=== PATIENT | female | born 1990 | race Caucasian/White ===

== ENCOUNTER 2020-05-26 13:51 | Emergency (ER) | payer OTHER ==
--- OUTSIDE RECORDS SUMMARY | 2020-05-26 13:53 | XMS REPORT | Continuity of Care Document ---
:1990 Author Organization [facility] t Address [address] [place] [address] Care Team Providers Name Role Phone 2, [facility] Attending Clinician Unavailable Bossman Banerjee MD Attending Clinician Monica PFEIFFER Attending Clinician Problems This patient has no known problems. Allergies, Adverse Reactions, Alerts This patient has no known allergies or adverse reactions. Medications This patient has no known medications. Procedures This patient has no known procedures. Encounters Start End Encounter Admission Attending Care Care Encounter Source Date/Time Date/Time Type Type Clinicians Facility Department ID 2020-02-01 2020-02-01 Trouble Tracer 2, [facility] [id number] 08:45:20 09:00:20 Visit Brandon [id number] [place] [id number] [place] [id number] [address] 2020-01-31 2020-01-31 Telephone Lauren Banerjee [facility] [id number] 00:00:00 00:00:00 Bossman Taylor [id number] [place] [id number] Griffin [phone] [facility] [address] [facility] 2020-01-30 2020-01-30 Office Monica RILATISHA [id number] 15:52:03 17:03:15 Visit Gissell Taylor [id number] [place] [id number] [facility] Edessio [phone] [facility] 134 Building Results This patient has no known results.
--- NOTE | 2020-05-26 14:53 | RAD REPORT ---
EXAM DESCRIPTION: CT - CTHCSPWOC - 05/26/2020 2:21 pm CLINICAL HISTORY: PAIN, facial trauma, head and neck injury COMPARISON: <Comparisons> TECHNIQUE: Axial 5 mm thick images of the head were obtained. Axial 2 mm thick images of the cervic al spine were obtained with sagittal and coronal reconstruction images generated and reviewed. All CT scans are performed using dose optimization technique as appropriate and may include automated exposure control or mA/KV adjustment according to patient size. FINDINGS: No intracranial hemorrhage, mass, edema or acute intracranial finding. No suspicion for ac flako infarction. No extra-axial fluid collections. Mastoid air cells are clear. No globe or orbit abno rmality seen. Orbits, sinuses and facial bones are separately detailed. Cervical body height and alignment are normal. No disk space narrowing. No fracture or acute bony abn ormality. Central canal detail is inherently limited. No paraspinal mass or hematoma. IMPRESSION: No intracranial abnormality present. Orbits, facial bones and sinuses are separately det chio. Negative CT cervical spine examination for acute or significant finding.
--- NOTE | 2020-05-26 15:01 | RAD REPORT ---
EXAM DESCRIPTION: CT - Facial Bones W/ Mpr - 05/26/2020 2:22 pm CLINICAL HISTORY: Pain, facial trauma COMPARISON: None. TECHNIQUE: Axial 2 millimeter thick images of the facial bones were obtained with sagittal and coron al reconstruction imaging. All CT scans are performed using dose optimization technique as appropriate and may include automated exposure control or mA/KV adjustment according to patient size. FINDINGS: No mandible fracture. Condyles are normally positioned. Mastoid air cells are clear with n o skullbase fracture present. Sphenoid, ethmoid and left frontal sinuses are clear. Right frontal sin uses are not pneumatized. Bilateral maxillary sinus mucosal thickening present. Air-fluid level in th e left maxillary sinus. Right periorbital contusion and edema changes are present. No injury to the globe identified. No post septal orbital abnormality seen. No foreign body in the soft tissues. Nondisplaced nasal bone fracture is present. No nasal septum deviation seen. Zygomatic arches are int act. Nondisplaced fracture line is seen in the lateral superior left orbit. Lucent lines along the inferol ateral aspect of each maxillary sinus present. These are very symmetric can therefore probably vascul ar defects. Nondisplaced fracture is possible. No other evidence for possible sinus wall fracture. Pt erygoid bones are intact. IMPRESSION: Nondisplaced nasal bone fracture is present with nasal passage hemorrhage or edema hyatt es. Nondisplaced fracture in the superolateral left orbit. There are symmetric nondisplaced fractures ellis lorne vascular grooves along each inferior maxillary sinus. An air-fluid level is present in the left m axillary sinus. Significant right periorbital contusion and edema change without orbit fracture identified. No globe or post septal orbital injury seen.
--- NOTE | 2020-05-26 15:54 | EDPHYS ---
Physician Documentation [facility] Name: Omayra Wylie Age: 29 yrs Sex: Female : 1990 Arrival Date: 05/26/2020 Time: 13:56 Bed 18 Private MD: ED Physician Alexx Aguilar HPI: 05/26 15:38 This 29 yrs old Female presents to ER via Ambulatory with complaints of Fall pm1 Injury. 15:38 Details of fall: The patient fell from a height, on her boyfriend's shoulder. Onset: pm1 The symptoms/episode began/occurred yesterday. Associated injuries: The patient sustained injury to the head, pain, swelling. Severity of symptoms: in the emergency department the symptoms are unchanged. The patient has not experienced similar symptoms in the past. The patient has not recently seen a physician. Patient was apparently dirty dancing with her boyfriend. Was picked up onto her boyfriend's shoulder and he slipped on a sock and fell backwards. She hit the right side of her face on the floor. No LOC. Patient presenting with right eye swelling . Historical: - Allergies: 14:15 No Known Allergies; hb - Immunization history:: Adult Immunizations up to date. - Social history:: Smoking status: Patient reports the use of cigarette tobacco products. ROS: 15:38 Constitutional: Negative for fever, chills, and weight loss, Cardiovascular: Negative pm1 for chest pain, palpitations, and edema, Respiratory: Negative for shortness of breath, cough, wheezing, and pleuritic chest pain. 15:38 Neck: Negative for injury, pain, and swelling, Abdomen/GI: Negative for abdominal pain, nausea, vomiting, diarrhea, and constipation, Back: Negative for injury and pain, MS/Extremity: Negative for injury and deformity, Skin: Negative for injury, rash, and discoloration, Neuro: Negative for headache, weakness, numbness, tingling, and seizure. 15:38 Eyes: Positive for swelling, of the right eye, Negative for blurry vision, redness, vision loss, visual disturbance. 15:38 ENT: Positive for sinus congestion, sinus pain, Negative for drainage from ear(s), ear pain. Exam: 15:38 Constitutional: This is a well developed, well nourished patient who is awake, alert, pm1 and in no acute distress. 15:38 Back: No spinal tenderness. No costovertebral tenderness. Full range of motion. 15:38 Skin: Warm, dry with normal turgor. Normal color with no rashes, no lesions, and no evidence of cellulitis. MS/ Extremity: Pulses equal, no cyanosis. Neurovascular intact. Full, normal range of motion. 15:38 Eyes: Periorbital structures: swelling, that is moderate, on the right eye, ecchymosis, on the right eye, Extraocular movements: No signs or indication of entrapment in either eye. 15:38 ENT: External ear(s): are unremarkable, Ear canal(s): are normal, TM's: are normal, Nose: Nasal septum: is midline, no septal hematoma appreciated, clotted blood, is not appreciated, Posterior pharynx: is normal, airway is patent, no erythema, no exudate, no pooling of secretions, no swelling. 15:38 Neck: Exam negative for acute changes, External neck: no acute changes, C-spine: vertebral tenderness, is not appreciated, ROM/movement: is normal. 15:38 Cardiovascular: Exam negative for acute changes, Rate: normal, Rhythm: regular, Pulses: no pulse deficits are appreciated. 15:38 Respiratory: Exam negative for acute changes, respiratory distress, shortness of breath. 15:38 Abdomen/GI: Exam negative for acute changes, Inspection: abdomen appears normal, Palpation: abdomen is soft and non-tender, in all quadrants. 15:38 Neuro: Exam negative for acute changes, Orientation: is normal, Mentation: is normal, Motor: is normal, moves all fours, Sensation: is normal, no obvious gross deficits. Vital Signs: 14:08 BP 138 / 78; Pulse 88; Resp 16; Temp 98.3; Pulse Ox 100% ; Pain 10/10; hb 16:08 BP 140 / 74; Pulse 81; Resp 18; Pulse Ox 100% on R/A; bw MDM: 15:24 Patient medically screened. pm1 15:38 Data reviewed: vital signs. Data interpreted: Pulse oximetry: on room air is 100 %. pm1 Interpretation: normal. 15:43 Counseling: I had a detailed discussion with the patient and/or guardian regarding: the pm1 historical points, exam findings, and any diagnostic results supporting the discharge/admit diagnosis, radiology results, the need for outpatient follow up, an ENT specialist, a plastic surgeon, to return to the emergency department if symptoms worsen or persist or if there are any questions or concerns that arise at home. 05/26 14:09 Order name: CT Head C Spine; Complete Time: 15:08 rn 05/26 14:09 Order name: CT Facial Bones W/O Con; Complete Time: 15:08 rn Administered Medications: 16:07 Drug: [place] (HYDROcodone-acetaminophen) 5 mg-325 mg 1 tabs Route: PO; bw Disposition: 16:41 Co-signature as Attending Physician, Alexx Aguilar MD. rn Disposition: 05/26/20 15:54 Discharged to Home. Impression: Fracture of nasal bones, Nondisplaced superolateral left orbit fracture. - Condition is Stable. - Discharge Instructions: Nasal Fracture. - Prescriptions for Augmentin 875- 125 mg Oral Tablet - take 1 tablet by ORAL route every 12 hours for 10 days; 20 tablet. Tramadol 50 mg Oral Tablet - take 1 tablet by ORAL route every 8 hours as needed; 12 tablet. - Medication Reconciliation Form, Thank You Letter, Antibiotic Education, Prescription Opioid Use form. - Follow up: Emergency Department; When: As needed; Reason: Worsening of condition. Follow up: Private Physician; When: 2 - 3 days; Reason: Recheck today's complaints, Continuance of care, Re-evaluation by your physician. - Problem is new. - Symptoms have improved. Signatures: Dispatcher [employer] EDMS Alexx Aguilar MD MD rn Marinas, Patrick, JACQUELINE ACCOUNT ADJUSTER pm1 Nallely Dejesus RN RN Kandace Hinojosa RN RN Corrections: (The following items were deleted from the chart) 16:38 15:54 05/26/2020 15:54 Discharged to Home. Impression: Fracture of nasal bones; bw Nondisplaced superolateral left orbit fracture. Condition is Stable. Forms are Medication Reconciliation Form, Thank You Letter, Antibiotic Education, Prescription Opioid Use. Follow up: Emergency Department; When: As needed; Reason: Worsening of condition. Follow up: Private Physician; When: 2 - 3 days; Reason: Recheck today's complaints, Continuance of care, Re-evaluation by your physician. Problem is new. Symptoms have improved. pm1
--- NOTE | 2020-05-26 15:54 | ER ---
Nurse's Notes [facility] Name: Omayra Wylie Age: 29 yrs Sex: Female : 1990 Arrival Date: 05/26/2020 Time: 13:56 Bed 18 Private MD: Diagnosis: Fracture of nasal bones;Nondisplaced superolateral left orbit fracture Presentation: 05/26 14:08 Chief complaint: picked her up while dancing in the kitchen, slipped and she hb landed on her face. Right periorbital bruising and swelling that extend to right side of face noted. Pt c/o face and neck pain, right upper teeth loose, clear yellowish fluid leaking from nostrils. 14:08 Method Of Arrival: Ambulatory hb 14:08 Coronavirus screen: At this time, the client does not indicate any symptoms associated hb with coronavirus-19. Coronavirus screen: At this time, the client does not indicate any symptoms associated with coronavirus-19. Ebola Screen: No symptoms or risks identified at this time. Risk Assessment: Do you want to hurt yourself or someone else? Patient reports no desire to harm self or others. Onset of symptoms was May 25, 2020. 14:08 Acuity: PRETTY 3 hb Historical: - Allergies: 14:15 No Known Allergies; hb - Immunization history:: Adult Immunizations up to date. - Social history:: Smoking status: Patient reports the use of cigarette tobacco products. Screenin:08 Abuse screen: Denies threats or abuse. Nutritional screening: No deficits noted. bw Tuberculosis screening: No symptoms or risk factors identified. Fall Risk None identified. Assessment: 14:11 Reassessment: Dr. Aguilar notified, pt placed in waiting room, awaiting radiology at this hb time. 14:14 Reassessment: Pt to radiology via wheelchair. hb 16:08 Pain: Complains of pain in face. Neuro: No deficits noted. Cardiovascular: No deficits bw noted. Respiratory: No deficits noted. GI: No deficits noted. : No deficits noted. EENT: No deficits noted. Derm: No deficits noted. Musculoskeletal: Reports pain in right eye. Injury Description: Bruise sustained to right eye. Vital Signs: 14:08 BP 138 / 78; Pulse 88; Resp 16; Temp 98.3; Pulse Ox 100% ; Pain 10/10; hb 16:08 BP 140 / 74; Pulse 81; Resp 18; Pulse Ox 100% on R/A; bw ED Course: 13:56 Patient arrived in ED. ds1 14:14 Triage completed. hb 14:15 Arm band placed on. hb 14:21 CT Head C Spine In Process Unspecified. EDMS 14:21 CT Facial Bones W/O Con In Process Unspecified. EDMS 15:04 Kandace Hinojosa, RN is Primary Nurse. bw 15:15 Beau Lennon NP is PHCP. pm1 15:15 Alexx Aguilar MD is Attending Physician. pm1 16:08 Patient has correct armband on for positive identification. Call light in reach. Side bw rails up X 1. Pulse ox on. NIBP on. Warm blanket given. 16:08 No provider procedures requiring assistance completed. Patient did not have IV access bw during this emergency room visit. Administered Medications: 16:07 Drug: [place] (HYDROcodone-acetaminophen) 5 mg-325 mg 1 tabs Route: PO; bw Outcome: 15:54 Discharge ordered by . pm1 16:38 Patient left the ED. bw Signatures: Dispatcher [employer] EDMD Angie Boucher ds1 Beau Lennon NP ARTIFICIAL FLOWERS SUPERVISOR pm1 Nallely Dejesus RN RN Kandace Hinojosa RN RN Corrections: (The following items were deleted from the chart) 14:16 14:15 Reassessment: Dr. Aguilar notified, pt placed in waiting room, awaiting radiology hb at this time. hb
[2020-05-26] MEDS ORDERED: HYDROCODONE/APAP 5/325 MG TAB ONE (16:17)
[2020-05-26 22:19] VITALS: BP 138/78; TEMP 98.3; O2SAT 100
== END 2020-05-26 16:38 | disposition home or self-care (01) ==
LOC: ER 13:51
DX: S02.842A Fracture of lateral orbital wall, left side, initial encounter for closed fracture (principal); S02.2XXA Fracture of nasal bones, initial encounter for closed fracture; W04.XXXA Fall while being carried or supported by other persons, initial encounter; Y93.41 Activity, dancing; F17.210 Nicotine dependence, cigarettes, uncomplicated
CPT/HCPCS: 70450; 70486; 72125; 76377; 99283

== ENCOUNTER 2021-07-11 23:00 | Emergency (ER) | payer OTHER, SELFPAY ==
--- OUTSIDE RECORDS SUMMARY | 2021-07-11 23:04 | XMS REPORT | Continuity of Care Document ---
:1990 Author Organization [facility] t Address [address] [place] [address] Care Team Providers Name Role Phone PCP, PATIENT DOES NOT HAVE A Primary Care Physician Unavailwiley ANDERSON Attending Clinician Unavailable 2, Lab Attending Clinician Unavailable Abdullahi PFEIFFER Attending Clinician Bossman Banerjee MD Attending Clinician Doctor Unassigned, Name Attending Clinician Unavailable Payers Payer Name Policy Type Policy Number Effective Date Expiration Date S rehana COMMERCIAL [id number] 2019 NON-CONTRACT 00:00:00 GENERIC [employer] HMO [id number] 2017 00:00:00 Problems Condition Condition Condition Status Onset Resolution Last Treating Co mments Source Name Details Category Date Date Treatment Clinician Date Chlamydia Chlamydia Disease Active Overview: Univers trachomati trachomati 3-22 05/05/18 - ity of s s 00:00: +chlamydi [place] infection infection 00 a s/p Medi curtis of lower of lower treatment Bra [facility] genitourin genitourin [facility] Breast Breast Disease Active Univers lump on lump on 3-20 [place] 3 00 Medical o'clock o'clock Branch position position History of History of Disease Active U nivers ovarian ovarian 3-20 ity of cyst cyst 00:00: [place] 00 Medical Branch History of History of Disease Active Overview : Univers herpes herpes 3-20 Uses ity of genitalis genitalis [place] [facility] [place] Acyclovir Medical PRN. 4-5 Branch outbreaks a year. History of History of Disease Active U nivers cervical cervical 3-20 [place] [address] [place] [address] S/P tubal S/P tubal Disease Active Uni vers ligation ligation 2-03 ity of 00:00: [address] Allergies, Adverse Reactions, Alerts Allergy Allergy Status Severity Reaction(s) Onset Inactive Treating Comm ents Source Name Type Date Date Clinician NO KNOWN Drug Active Univers ALLERGIE Class ity of S [facility] Social History Social Habit Start Date Stop Date Quantity Comments Source Exposure to Not sure [facility] SARS-CoV-2 [facility] (event) [place] [facility] Tobacco use and 2020-01-30 2020-01-30 Never used Universit y of exposure 00:00:00 00:00:00 [facility] Alcohol intake 2020-01-30 2020-01-30 Current drinker Unive rsity of 00:00:00 00:00:00 of alcohol [facility] (finding) [place] Alcohol Comment 2018-05-05 2018-05-05 every other Universi ty of 00:00:00 00:00:00 weekend [facility] Smoking Status Start Date Stop Date Source Never smoker [facility] Medications Ordered Filled Start Stop Current Ordering Indication Dosage Frequency Signature Comments Components Source Medication Medication Date Date Medication? Clinician (SIG) Name Name ACYCLOVIR 2019-02 Yes Take by [facility] ers ORAL 2-15 mouth. ity of 06:27: [address] ACYCLOVIR 2019-02 Yes Take by [facility] ers ORAL 2-15 mouth. ity of 06:27: [address] ACYCLOVIR 2019-02 Yes Take by [facility] ers ORAL 2-15 mouth. ity of 06:27: [address] ACYCLOVIR 2019-02 Yes Take by [facility] ers ORAL 2-14 mouth. ity of 22:10: [address] ACYCLOVIR 2019-02 Yes Take by [facility] ers ORAL 2-14 mouth. ity of 22:10: [address] bisacodyl 2019-02 2020- No 5mg Take 5 mg Un sylvie (LAXATIVE, -14 12-14 by mouth ity of BISACODYL,) 21:54: 00:00 once daily [place] 5 mg EC 37 :00 as needed Medical tablet for Branch Constipati on. bisacodyl 2019-02 2020- No 5mg Take 5 mg Un sylvie (LAXATIVE, 2-14 12-14 by mouth ity of BISACODYL,) 21:54: 00:00 once daily [place] 5 mg EC 37 :00 as needed Medical tablet for Branch Constipati on. bisacodyl 2019-02 2020- No 5mg Take 5 mg Un sylvie (LAXATIVE, 2-14 12-14 by mouth ity of BISACODYL,) 21:54: 00:00 once daily [place] 5 mg EC 37 :00 as needed Medical tablet for Branch Constipati on. Brindall 2019-02 2020- No 1{tbl} Take 1 Univ ers Guardado-Chrom 2-14 12-14 tablet by it y of ium Iram 21:54: 00:00 mouth [place] (GARCINIA 34 :00 daily. Medical [place]) Branch 200-500 mcg-mg Tab [place] 2019-02 2020- No 1{tbl} Take 1 Univ ers Guardado-Chrom 2-14 12-14 tablet by it y of ium Iram 21:54: 00:00 mouth [place] (GARCINIA 34 :00 daily. Medical [place]) Branch 200-500 mcg-mg Tab [place] 2019-02 2020- No 1{tbl} Take 1 Univ ers Guardado-Chrom 2-14 12-14 tablet by it y of ium Iram 21:54: 00:00 mouth [place] (GARCINIA 34 :00 daily. Medical [place]) Branch 200-500 mcg-mg Tab [place] 2020-0 Yes 1{tbl} Take 1 Unive rs [place]-Chrom 1-05 tablet by ity of ium Iram 21:08: mouth [place] (GARCINIA 33 daily. Medical [place]) Branch 200-500 mcg-mg Tab bisacodyl 2020-0 Yes 5mg Take 5 mg Uni vers (LAXATIVE, 1-05 by mouth ity o f BISACODYL,) 21:08: once daily [place] 5 mg EC 33 as needed Medical tablet for Branch Constipati on. [place]ind[place] 2020-0 Yes 1{tbl} Take 1 Unive rs [place]-Chrom 1-05 tablet by ity of ium Iram 21:08: mouth [place] (GARCINIA 33 daily. Medical [facility]) Branch 200-500 mcg-mg Tab bisacodyl 2020-0 Yes 5mg Take 5 mg Uni vers (LAXATIVE, 1-05 by mouth ity o f BISACODYL,) 21:08: once daily [place] 5 mg EC 33 as needed Medical tablet for Branch Constipati on. [place] 2020-0 Yes 1{tbl} Take 1 Unive rs Guard[place]-Chrom 1-05 tablet by ity of ium Iram 21:08: mouth [place] (GARCINIA 33 daily. Medical [facility]) Branch 200-500 mcg-mg Tab bisacodyl 2020-0 Yes 5mg Take 5 mg Uni vers (LAXATIVE, 1-05 by mouth ity o f BISACODYL,) 21:08: once daily [place] 5 mg EC 33 as needed Medical tablet for Branch Constipati on. [place] 2020-0 Yes 1{tbl} Take 1 Unive rs [place]rom 1-05 tablet by ity of ium Iram 21:08: mouth [place] (GARCINIA 33 daily. Medical [facility]) Branch 200-500 mcg-mg Tab bisacodyl 2020-0 Yes 5mg Take 5 mg Uni vers (LAXATIVE, 1-05 by mouth ity o f BISACODYL,) 21:08: once daily [place] 5 mg EC 33 as needed Medical tablet for Branch Constipati on. valACYclovi 2019-0 Yes [id number] 500mg Take 1 Univers r 500 mg 3-20 tablet by ity of tablet 00:00: mouth 2 (two) Medical times Branch daily. valACYclovi 2019-0 Yes [id number] 500mg Take 1 Univers r 500 mg 3-20 tablet by ity of tablet 00:00: mouth 2 (two) Medical times Branch daily. valACYclovi 2019-0 Yes [id number] 500mg Take 1 Univers r 500 mg 3-20 tablet by ity of tablet 00:00: mouth 2 (two) Medical times Branch daily. valACYclovi 2019-0 Yes [id number] 500mg Take 1 Univers r 500 mg 3-20 tablet by ity of tablet 00:00: mouth 2 (two) Medical times Branch daily. valACYclovi 2019-0 Yes [id number] 500mg Take 1 Univers r 500 mg 3-20 tablet by ity of tablet 00:00: mouth 2 (two) Medical times Branch daily. valACYclovi 2019-0 Yes [id number] 500mg Take 1 Univers r 500 mg 3-20 tablet by ity of tablet 00:00: mouth 2 (two) Medical times Branch daily. valACYclovi 2019-0 Yes [id number] 500mg Take 1 Univers r 500 mg 3-20 tablet by ity of tablet 00:00: mouth 2 (two) Medical times Branch daily. valACYclovi 2019-0 Yes [id number] 500mg Take 1 Univers r 500 mg 3-20 tablet by ity of tablet 00:00: mouth 2 (two) Medical times Branch daily. valACYclovi 2019-0 Yes [id number] 500mg Take 1 Univers r 500 mg 3-20 tablet by ity of tablet 00:00: mouth 2 (two) Medical times Branch daily. HYDROcodone 2017-0 Yes 1{tbl} Take 1 Un sylvie -acetaminop 2-03 tablet by ity of hen (NORCO) 00:00: mouth [place] 10-325 mg 00 every 6 Medical tablet (six) Branch hours as needed for Pain (scale 1-3), Pain (scale 4-6) or Pain (scale 7-10). metoclopram 2017-0 Yes 10mg Take 1 Univ ers andrzej HCl 10 2-03 tablet by ity of mg tablet 00:00: mouth [place] 00 every 6 Medical (six) Branch hours as needed for Nausea and Vomiting (N/V). HYDROcodone 2017-0 Yes 1{tbl} Take 1 Un sylvie -acetaminop 2-03 tablet by ity of hen (NORCO) 00:00: mouth [place] 10-325 mg 00 every 6 Medical tablet (six) Branch hours as needed for Pain (scale 1-3), Pain (scale 4-6) or Pain (scale 7-10). metoclopram 2017-0 Yes 10mg Take 1 Univ ers andrzej HCl 10 2-03 tablet by ity of mg tablet 00:00: mouth [place] 00 every 6 Medical (six) Branch hours as needed for Nausea and Vomiting (N/V). HYDROcodone 2017-0 Yes 1{tbl} Take 1 Un sylvie -acetaminop 2-03 tablet by ity of hen (NORCO) 00:00: mouth [place] 10-325 mg 00 every 6 Medical tablet (six) Branch hours as needed for Pain (scale 1-3), Pain (scale 4-6) or Pain (scale 7-10). metoclopram 2017-0 Yes 10mg Take 1 Univ ers andrzej HCl 10 2-03 tablet by ity of mg tablet 00:00: mouth [place] 00 every 6 Medical (six) Branch hours as needed for Nausea and Vomiting (N/V). HYDROcodone 2017-0 Yes 1{tbl} Take 1 Un sylvie -acetaminop 2-03 tablet by ity of hen (NORCO) 00:00: mouth [place] 10-325 mg 00 every 6 Medical tablet (six) Branch hours as needed for Pain (scale 1-3), Pain (scale 4-6) or Pain (scale 7-10). metoclopram 2017-0 Yes 10mg Take 1 Univ ers andrzej HCl 10 2-03 tablet by ity of mg tablet 00:00: mouth [place] 00 every 6 Medical (six) Branch hours as needed for Nausea and Vomiting (N/V). HYDROcodone 2017-0 Yes 1{tbl} Take 1 Un sylvie -acetaminop 2-03 tablet by ity of hen (NORCO) 00:00: mouth [place] 10-325 mg 00 every 6 Medical tablet (six) Branch hours as needed for Pain (scale 1-3), Pain (scale 4-6) or Pain (scale 7-10). metoclopram 2017-0 Yes 10mg Take 1 Univ ers andrzej HCl 10 2-03 tablet by ity of mg tablet 00:00: mouth [place] 00 every 6 Medical (six) Branch hours as needed for Nausea and Vomiting (N/V). HYDROcodone 2017-0 Yes 1{tbl} Take 1 Un sylvie -acetaminop 2-03 tablet by ity of hen (NORCO) 00:00: mouth [place] 10-325 mg 00 every 6 Medical tablet (six) Branch hours as needed for Pain (scale 1-3), Pain (scale 4-6) or Pain (scale 7-10). metoclopram 2017-0 Yes 10mg Take 1 Univ ers andrzej HCl 10 2-03 tablet by ity of mg tablet 00:00: mouth [place] 00 every 6 Medical (six) Branch hours as needed for Nausea and Vomiting (N/V). HYDROcodone 2017-0 Yes 1{tbl} Take 1 Un sylvie -acetaminop 2-03 tablet by ity of hen (NORCO) 00:00: mouth [place] 10-325 mg 00 every 6 Medical tablet (six) Branch hours as needed for Pain (scale 1-3), Pain (scale 4-6) or Pain (scale 7-10). metoclopram 2017-0 Yes 10mg Take 1 Univ ers andrzej HCl 10 2-03 tablet by ity of mg tablet 00:00: mouth [place] 00 every 6 Medical (six) Branch hours as needed for Nausea and Vomiting (N/V). HYDROcodone 2017-0 Yes 1{tbl} Take 1 Un sylvie -acetaminop 2-03 tablet by ity of hen (NORCO) 00:00: mouth [place] 10-325 mg 00 every 6 Medical tablet (six) Branch hours as needed for Pain (scale 1-3), Pain (scale 4-6) or Pain (scale 7-10). metoclopram 2017-0 Yes 10mg Take 1 Univ ers andrzej HCl 10 2-03 tablet by ity of mg tablet 00:00: mouth [place] 00 every 6 Medical (six) Branch hours as needed for Nausea and Vomiting (N/V). HYDROcodone 2017-0 Yes 1{tbl} Take 1 Un sylvie -acetaminop 2-03 tablet by ity of hen (NORCO) 00:00: mouth [place] 10-325 mg 00 every 6 Medical tablet (six) Branch hours as needed for Pain (scale 1-3), Pain (scale 4-6) or Pain (scale 7-10). metoclopram 2017-0 Yes 10mg Take 1 Univ ers andrzej HCl 10 2-03 tablet by ity of mg tablet 00:00: mouth [place] 00 every 6 Medical (six) Branch hours as needed for Nausea and Vomiting (N/V). Immunizations Ordered Filled Immunization Date Status Comments [facility] e Immunization Name Name Influenza Virus 2020-01-30 Completed Universit y of Vaccine [place] .5 mL 00:00:00 [place] [facility] IM 6+ MO Branch Influenza Virus 2020-01-30 Completed Universit y of Vaccine [place] .5 mL 00:00:00 [place] Medical IM 6+ MO Branch Influenza Virus 2020-01-30 Completed Universit y of Vaccine [place] .5 mL 00:00:00 [place] Medical IM 6+ MO Branch Influenza Virus 2020-01-30 Completed Universit y of Vaccine [place] .5 mL 00:00:00 [place] Medical IM 6+ MO Branch Influenza Virus 2020-01-30 Completed Universit y of Vaccine [place] .5 mL 00:00:00 [place] Medical IM 6+ MO Branch Vital Signs Vital Name Observation Time Observation Value Comments Source Systolic blood 2020-01-30 22:06:00 129 mm[Hg] Univer sity of pressure [facility] Branch Diastolic blood 2020-01-30 22:06:00 86 mm[Hg] Unive rsity of pressure [facility] Branch Heart rate 2020-01-30 22:06:00 116 /min Universi ty of [facility] Branch Body temperature 2020-01-30 22:06:00 36.89 Elayne Univ ersity of [facility] Branch Respiratory rate 2020-01-30 22:06:00 16 /min Univ ersity of [facility] Branch Body height 2020-01-30 22:06:00 154.9 cm Universi ty of [facility] Body weight 2020-01-30 22:06:00 68.312 kg Universi ty of [place] [facility] BMI 2020-01-30 22:06:00 28.46 kg/m2 Universi ty of [facility] Branch Systolic blood 2020-01-30 22:06:00 129 mm[Hg] Univer sity of pressure [facility] Branch Diastolic blood 2020-01-30 22:06:00 86 mm[Hg] Unive rsity of pressure [facility] Branch Heart rate 2020-01-30 22:06:00 116 /min Universi ty of [place] [facility] Body temperature 2020-01-30 22:06:00 36.89 Elayne Univ ersity of [facility] Branch Respiratory rate 2020-01-30 22:06:00 16 /min Univ ersity of [facility] Branch Body height 2020-01-30 22:06:00 154.9 cm Universi ty of [place] [facility] Body weight 2020-01-30 22:06:00 68.312 kg Universi ty of [place] [facility] BMI 2020-01-30 22:06:00 28.46 kg/m2 Universi ty of [facility] Branch Procedures Procedure Date / Time Performing Clinician Source Performed GC & CHLAMYDIA AMPLIFIED 2020-01-30 22:21:00 Gissell Anderson Uni versity of [facility] TRICHOMONAS AMPLIFIED 2020-01-30 22:21:00 Gissell Anderson Univer sity [facility] [place] FLU VACC ([id number]), 6+ 2020-01-30 22:20:16 Gissell Anderson Uni versity of [place] MONTHS, IM, QUAD Medical Branch ASSIGNMENT OF BENEFITS 2020-01-30 21:48:14 [facility] [place] [facility] MEDICATION CORRESPONDENCE 2019-03-02 06:01:00 Doctor Unassigned, [facility] [place] [facility] Encounters Start End Encounter Admission Attending Care Care Encounter Source Date/Time Date/Time Type Type Clinicians Facility Department ID 2021-01-29 2021-01-29 Outpatient R ABDULLAHI [facility] [id number] Univers 13:30:00 13:30:00 GISSELL [id number] ity [facility] 2021-01-29 2021-01-29 Outpatient R ABDULLAHI [facility] [id number] Univers 13:30:00 13:30:[facility] 2020-02[facility]14 [facility] [id number] Univers 16:30:00 16:30:00 [facility] [id number] [facility] 2020-02-01 2020-02-01 [facility] [id number] 08:45:20 09:00:20 Visit [place] [id number] [place] [id number] Professio [phone] [address] 2020-02-01 2020-02-01 [facility] [id number] Univers 08:45:20 09:00:20 [id number] [id number] [phone] Mi dical [address] 2020-02-01 2020-02-01 Outpatient R [facility] [id number] Univers 08:45:00 08:45:00 [id number] ity [facility] 2020-02-01 2020-02-01 Outpatient R [facility] [id number] Univers 08:45:00 08:45:00 ity [facility] 2020-01-31 2020-01-31 Telephone Lauren Banerjee [facility] [id number] 00:00:00 00:00:00 Cam [place] [id number] [place] [id number] Professio [phone] [address] 2020-01-31 2020-01-31 Telephone Lauren Banerjee [facility] [id number] Univers 00:00:00 00:00:00 Cam [place] [id number] i ty of [place] [id number] Profess[place] [phone] [address] 2020-01-30 2020-01-30 [facility] [id number] 15:52:03 17:03:15 Visit Gissell [place] [id number] [place] [id number] Professio [phone] [address] 2020-01-30 2020-01-30 [facility] [id number] Univers 15:52:03 17:03:15 Visit Gissell [place] [id number] i ty of [place] [id number] [place] Profess[place] [phone] [address] 2020-01-30 2020-01-30 Outpatient R ABDULLAHI [facility] [id number] Univers 16:15:00 16:15:00 GISSELL [id number] [facility] 2020-01-30 2020-01-30 Outpatient R ABDULLAHI [facility] [id number] Univers 16:15:00 16:15:00 GISSELL [facility] 2020-01-30 2020-01-30 Outpatient R ABDULLAHI [facility] [id number] Univers 16:15:00 16:15:00 GISSELL [facility] 2020-01-30 2020-01-30 Orders Doctor MALONE [id number] Univers 00:00:00 00:00:00 Only Unassigned, RAJANI [id number] ity of [place] [facility] [id number] Marek as [phone] [address] 2019-05-06 2019-05-06 Outpatient R ABDULLAHI [facility] [id number] Univers 08:00:00 08:00:00 GISSELL ity of [facility] 2019-03-03 2019-03-03 Telephone Abdullahi [facility] [id number] Univers 00:00:00 00:00:00 Gissell [place] [id number] i ty of [place] [id number] [phone] Mi dical nal [address] [place] [address] 2019-03-02 2019-03-02 Orders Doctor KIRA [id number] Univers 00:00:00 00:00:00 Only Unassigned, RAJANI [id number] ity of [place] [facility] [id number] Marek as [phone] [address] 2019-03-02 2019-03-02 Patient Doctor [facility] [id number] Univers 00:00:00 00:00:00 Secure Msg Unassigned, [place] [id number] [place]y of [place] [id number] Profess[place] [phone] [address] Results Test Description Test Time Test Comments Results Result Comments Source TRICHOMONAS AMPLIFIED ASSAY 2020-01-31 18:39:00 Test Item Value Reference Range Interpretation Comme nts Trichomonas Nucleic Acid (test code = Negative Negative 00481-8) LIEN (test code = LIEN) Reliable results are dependent on adequate specimen collection. ? A positive result obtained from a patient after therapeutic treatment cannot be interpreted as indicating the presence of viable organisms. ?For patients on whom a false positive result may have adverse psychosocial impact, retesting is advised. Indeterminate: Unable to generate a valid test result on this specimen. ?Please submit a new specimen for repeat testing if clinically indicated. Trichomonas nucleic acid amplification testing (NAAT) has not been validated for medico-legal specimens (sexual abuse in johnny-pubertal and pre-pubertal children, sexual assault, and legal cases). ?Wet mount with microscopic observation and culture for Trichomonas vaginalis from clinically appropriate sites are the methods of choice in these cases. Results from this testing should be interpreted in conjunction with other laboratory and clinical data available to the clinician. Lab Interpretation (test code = Normal 36261-9) [facility] & CHLAMYDIA AMPLIFIED [id number] 18:29:00 Test Item Value Reference Range Interpretation Comments C. trachomatis Nucleic Negative Negative Acid (test code = 92383-0) N. gonorrhoeae Nucleic Negative Negative Acid (test code = 07357-8) LIEN (test code = LIEN) Reliable results are dependent on adequate specimen collection. ? A positive result obtained from a patient after therapeutic treatment cannot be interpreted as indicating the presence of viable organisms. ?For patients on whom a false positive result may have adverse psychosocial impact, retesting is advised. Indeterminate: Unable to generate a valid test result on this specimen. ?Please submit a new specimen for repeat testing if clinically indicated. Chlamydia trachomatis/Neisseria gonorrhoeae nucleic acid amplification testing (NAAT) has not been validated for medico-legal specimens (sexual abuse in johnny-pubertal and pre-pubertal children, sexual assault, and legal cases). ?Culture for Chlamydia trachomatis and/or Neisseria gonorrhoeae from clinically appropriate sites is the method of choice in these cases. ? Results from this testing should be interpreted in conjunction with other laboratory and clinical data available to the clinician.For females in general, a urine specimen is a second-line option because it is considered less sensitive than a cervical swab for Chlamydia trachomatis and/or Neisseria gonorrhoeae NAAT. Lab Interpretation Normal (test code = 10613-6) [facility]
[2021-07-12] MEDS ORDERED: HYDROCODONE/APAP 5/325 MG TAB ONE (00:56)
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
--- NOTE | 2021-07-12 02:36 | EDPHYS ---
Physician Documentation [facility] Name: Omayra Wylie Age: 30 yrs Sex: Female : 1990 Arrival Date: 07/11/2021 Time: 23:03 Bed 4 Private MD: ED Physician Trip Pereira HPI: 07/12 01:02 This 30 yrs old Female presents to ER via Ambulatory with complaints of Arm Injury. [facility] 01:02 The patient or guardian complains of injury. The complaints affect the right forearm mh7 and right hand. Context: The problem was sustained on a street or driveway, resulted from a fall, on an outstretched hand. Onset: The symptoms/episode began/occurred 2 day(s) ago. Treatment prior to arrival includes: over the counter medications, Tylenol. Modifying factors: The symptoms are alleviated by nothing. the symptoms are aggravated by movement. 01:02 Associated signs and symptoms: Pertinent positives: decreased range of motion, pain, mh7 swelling. 01:02 Severity of symptoms: At their worst the symptoms were moderate, yesterday, in the [facility] emergency department the symptoms are unchanged. 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 - Social history:: Smoking status: Patient denies any tobacco usage or history of. Patient uses alcohol, occasionally. ROS: 07/12 01:02 Constitutional: Negative for fever, chills, and weight loss, Eyes: Negative for injury, mh7 pain, redness, and discharge, ENT: Negative for injury, pain, and discharge, Neck: Negative for injury, pain, and swelling, Cardiovascular: Negative for chest pain, palpitations, and edema, Respiratory: Negative for shortness of breath, cough, wheezing, and pleuritic chest pain, Abdomen/GI: Negative for abdominal pain, nausea, vomiting, diarrhea, and constipation, Back: Negative for injury and pain, : Negative for injury, bleeding, discharge, and swelling, Skin: Negative for injury, rash, and discoloration, Neuro: Negative for headache, weakness, numbness, tingling, and seizure, Psych: Negative for depression, anxiety, suicide ideation, homicidal ideation, and hallucinations, Allergy/Immunology: Negative for hives, rash, and allergies, Endocrine: Negative for neck swelling, polydipsia, polyuria, polyphagia, and marked weight changes, Hematologic/Lymphatic: Negative for swollen nodes, abnormal bleeding, and unusual bruising. Exam: 01:02 Head/Face: Normocephalic, atraumatic. Eyes: Pupils equal round and reactive to light, mh7 extra-ocular motions intact. Lids and lashes normal. Conjunctiva and sclera are non-icteric and not injected. Cornea within normal limits. Periorbital areas with no swelling, redness, or edema. Neck: Trachea midline, no thyromegaly or masses palpated, and no cervical lymphadenopathy. Supple, full range of motion without nuchal rigidity, or vertebral point tenderness. No Meningismus. Chest/axilla: Normal chest wall appearance and motion. Nontender with no deformity. No lesions are appreciated. Cardiovascular: Regular rate and rhythm with a normal S1 and S2. No gallops, murmurs, or rubs. Normal PMI, no JVD. No pulse deficits. Respiratory: Lungs have equal breath sounds bilaterally, clear to auscultation and percussion. No rales, rhonchi or wheezes noted. No increased work of breathing, no retractions or nasal flaring. Abdomen/GI: Soft, non-tender, with normal bowel sounds. No distension or tympany. No guarding or rebound. No evidence of tenderness throughout. Back: No spinal tenderness. No costovertebral tenderness. Full range of motion. Skin: Warm, dry with normal turgor. Normal color with no rashes, no lesions, and no evidence of cellulitis. 01:02 Neuro: Awake and alert, GCS 15, oriented to person, place, time, and situation. Cranial nerves II-XII grossly intact. Motor strength 5/5 in all extremities. Sensory grossly intact. Cerebellar exam normal. Normal gait. Psych: Awake, alert, with orientation to person, place and time. Behavior, mood, and affect are within normal limits. 01:02 Constitutional: The patient appears in no acute distress, alert, awake, uncomfortable. 01:02 Musculoskeletal/extremity: Extremities: noted in the right forearm and right hand: contusion, decreased ROM, pain, swelling, tenderness, ROM: limited active range of motion due to pain, in the right forearm and right hand, limited passive range of motion due to pain, in the right forearm and right hand, Circulation is intact in all extremities. Sensation intact. Compartment Syndrome exam of affected extremity: is normal. no numbness, no tingling, no sensation deficit, no palor, no weak pulses, Joints: All joints appear normal with full range of motion. Weight bearing: able to fully bear weight, without difficulty, Tendon exam: specific tendon testing normal through active and passive range of motion Vital Signs: 07/11 23:07 BP 157 / 113; Pulse 95; Resp 18; Temp 98.3; Pulse Ox 99% ; Weight 63.5 kg; Height 5 ft. ld1 0 in. (152.40 cm); Pain 6/10; 07/12 02:43 BP 146 / 80; Pulse 89; Resp 18; Pulse Ox 100% ; vc1 07/11 23:07 Body Mass Index 27.34 (63.50 kg, 152.40 cm) ld1 Procedures: 02:40 Splinting: Splint applied to right upper extremity using Orthoglass splint, applied by [facility] tech. Examined by me, post splint application: neurovascular intact, 2+ distal pulses palpable, brisk capillary refill noted, Patient tolerated well. MDM: 02:33 Differential diagnosis: dislocation, closed fracture, contusion, abrasion, tendonitis. [facility] Data reviewed: vital signs, nurses notes, radiologic studies, plain films. Data interpreted: Pulse oximetry: on room air is 99 %. Interpretation: normal. Counseling: I had a detailed discussion with the patient and/or guardian regarding: the historical points, exam findings, and any diagnostic results supporting the discharge/admit diagnosis, the presence of at least one elevated blood pressure reading (>120/80) during this emergency department visit, radiology results, the need for outpatient follow up, a orthopedic surgeon, to return to the emergency department if symptoms worsen or persist or if there are any questions or concerns that arise at home. Response to treatment: the patient's symptoms have markedly improved after treatment. 02:35 Patient medically screened. [facility] 07/12 00:04 Order name: XRAY Forearm RIGHT ld1 07/12 00:04 Order name: XRAY Hand RIGHT 3 View 1 07/12 02:33 Order name: Splint - Sugar Tong - Forearm; Complete Time: 03:02 [facility] 07/12 02:33 Order name: Sling; Complete Time: 03:02 [facility] Administered Medications: 00:59 Drug: HYDROcodone-acetaminophen 5 mg-325 mg 1 tabs Route: PO; vc1 02:00 Follow up: Response: No adverse reaction; Pain is decreased vc1 Disposition Summary: 07/12/21 02:35 Discharge Ordered Location: Home [facility] Problem: new [facility] Symptoms: have improved [facility] Condition: Stable [facility] Diagnosis - Sprain, Right forearm, Right Hand [facility] - Contusion of forearm [facility] - Contusion of hand [facility] Followup: [facility] - With: Private Physician - When: 1 - 2 days - Reason: Worsening of condition, Recheck today's complaints, Continuance of care, Re-evaluation by your physician Followup: [facility] - With: Иван Martinez MD - When: 2 - 3 days - Reason: Worsening of condition, Recheck today's complaints Discharge Instructions: - Discharge Summary Sheet [facility] - Hand Contusion, [id number] [facility] - Contusion, [id number] [facility] Forms: - Medication Reconciliation Form [facility] - Thank You Letter [facility] - Antibiotic Education [facility] - Prescription Opioid Use [facility] Prescriptions: - ketorolac 10 mg Oral tablet - take 1 tablet by ORAL route every 6 hours As needed not to exceed 40 mg in [facility] 24hrs; 15 tablet; Refills: 0, Product Selection Permitted Signatures: Dispatcher [employer] Trip Han MD MD 7 Kathryn Pat RN RN ld1 Kayleen Odonnell RN RN vc1 Corrections: (The following items were deleted from the chart) 01:04 01:02 Associated signs and symptoms: [place] [id number]
[2021-07-12 03:09] VITALS: TEMP 98.3
[2021-07-12 03:14] VITALS: BP 146/80; O2SAT 100
--- NOTE | 2021-07-12 13:09 | RAD REPORT ---
EXAM DESCRIPTION: RAD - Hand Right 3 View - 07/12/2021 12:51 am CLINICAL HISTORY: 30 years Female PAIN TECHNIQUE: 3 x-ray views of the right hand were performed on 07/12/2021 at 12:43 AM. Views of the right hand were performed on 07/12/2021 at 12:43 AM. COMPARISON: None FINDINGS: There is no evidence of fracture or dislocation. There is no significant arthritis or dege nerative change. On the edge of the radiograph, on the oblique image, there is a subtle lucency withi n the mid to distal ulnar diaphysis with a punctate area of central sclerosis possibly representing a n osteoid osteoma. An infectious etiology is not entirely excluded. There may be a small bone cyst wi thin the trapezium. Bone mineralization is normal. No acute soft tissue abnormalities are identified. IMPRESSION: 1. No evidence of acute osseous injury involving the right hand. 2. 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 An infectious etiology is not entirely excluded, but considered less likely. Electronically signed by: Candace Peters DO 07/12/2021 1:47 AM CDT Due to temporary technical issues with the PACS/Fluency reporting system, reports are being signed by the in house radiologist without review as a courtesy to ensure prompt reporting. The interpreting r adiologist is fully responsible for the content of the report.
--- NOTE | 2021-07-12 13:13 | RAD REPORT ---
EXAM DESCRIPTION: RAD - Forearm Right - 07/12/2021 12:51 am CLINICAL HISTORY: 30 years Female PAIN TECHNIQUE: 2 x-ray views of the right forearm were performed on 07/12/2021 at 12:46 AM. COMPARISON: None FINDINGS: There is no evidence of fracture or dislocation. There is no significant arthritis or dege nerative change. There is a 2 mm focal lucency within the mid to distal right ulnar diaphysis with a small punctate area of increased density. A tiny osteoid osteoma is not excluded. No additional focal osseous abnormalities are identified. Bone mineralization is normal. No acute soft tissue abnormalities are identified. IMPRESSION: No evidence of acute osseous injury. There is a 2 mm focal lucency within the mid to dis donte right ulnar diaphysis with a punctate central area of increased density. A tiny osteoid osteoma i s not excluded. Electronically signed by: Candace Peters DO 07/12/2021 1:42 AM CDT Due to temporary technical issues with the PACS/Fluency reporting system, reports are being signed by the in house radiologist without review as a courtesy to ensure prompt reporting. The interpreting r adiologist is fully responsible for the content of the report.
== END 2021-07-12 03:03 | disposition home or self-care (01) ==
LOC: ER 23:00
PROC: 2W3CX1Z Immobilization of Right Lower Arm using Splint (ICD-10-PCS; principal; 2021-07-12)
DX: S56.911A Strain of unspecified muscles, fascia and tendons at forearm level, right arm, initial encounter (principal); S66.911A Strain of unspecified muscle, fascia and tendon at wrist and hand level, right hand, initial encounter; S50.11XA Contusion of right forearm, initial encounter; S60.221A Contusion of right hand, initial encounter; W18.30XA Fall on same level, unspecified, initial encounter
CPT/HCPCS: 99284